=== PATIENT | female | born 1990 | race Caucasian/White ===

== ENCOUNTER → 2017-12-14 | Outpatient (CLI) | payer OTHER ==
--- NOTE | 2017-12-14 20:09 | XCELERA REPORT ---
[address] [address] Transthoracic Echocardiogram Report Name: MAXIMINO OCHOA Age: 27 yrs Gender: Female : 1990 Patient Status: Outpatient Patient Location: Study Date: 12/14/2017 02:31 PM Height: 63 in Weight: 173 lb BSA: 1.8 m2 Procedure: A complete two-dimensional transthoracic echocardiogram was performed (2D, M-mode, spectral and color flow Doppler). The study was technically good with many images being of high quality. Reason For Study: MURMUR Ordering Physician: RUDY ALVAREZ Performed By: Callie Yu Interpretation Summary The left ventricular ejection fraction is normal. The left ventricle is grossly normal size. Doppler measurements suggest normal left ventricular diastolic function There is normal left ventricular wall thickness. No regional wall motion abnormalities noted. The right ventricular systolic function is normal. The left atrial size is normal. The right atrium is normal in size There is a trace amount of mitral regurgitation There is no mitral valve stenosis. No aortic regurgitation is present. There is no aortic valve stenosis There is a trace to mild amount of tricuspid regurgitation Right ventricular systolic pressure is at the upper limits of normal The aortic root is not well visualized but is probably normal size. The inferior vena cava was not well visualized There is no pericardial effusion. MMode/2D Measurements & Calculations RVDd: 2.7 cm LVIDd: 4.2 cm FS: 34.2 % Ao root diam: 2.3 cm IVSd: 0.89 cm LVIDs: 2.8 cm EDV(Teich): 80.5 ml LVPWd: 0.94 cm ESV(Teich): 29.3 ml Ao root area: 4.1 cm2 EF(Teich): 63.6 % LA dimension: 3.2 cm Doppler Measurements & Calculations MV E max eileen: MV P1/2t max eileen: Ao V2 max: LV V1 max P.4 cm/sec 81.9 cm/sec 173.7 cm/sec 7.1 mmHg MV A max eileen: MV P1/2t: 56.7 msec Ao max PG: LV V1 max: 57.3 cm/sec 12.1 mmHg 132.8 cm/sec MV E/A: 1.4 MVA(P1/2t): 3.9 cm2 MV dec slope: 423.1 cm/sec2 MV dec time: 0.20 sec PA V2 max: PI end-d eileen: TR max eileen: 106.6 cm/sec 96.0 cm/sec 245.7 cm/sec PA max PG: TR max P.5 mmHg 24.1 mmHg Left Ventricle The left ventricle is grossly normal size. There is normal left ventricular wall thickness. The left ventricular ejection fraction is normal. Doppler measurements suggest normal left ventricular diastolic function. No regional wall motion abnormalities noted. Right Ventricle The right ventricle is grossly normal size. There is normal right ventricular wall thickness. The right ventricular systolic function is normal. Atria The right atrium is normal in size. The left atrial size is normal. Interarterial septum not well visualized and not well dopplered. Cannot comment on ASD/PFO presence. Mitral Valve The mitral valve is grossly normal. There is no mitral valve stenosis. There is a trace amount of mitral regurgitation. Aortic Valve The aortic valve is grossly normal. There is no aortic valve stenosis. No aortic regurgitation is present. Tricuspid Valve The tricuspid valve is not well visualized, but is grossly normal. There is no tricuspid stenosis. There is a trace to mild amount of tricuspid regurgitation. Right ventricular systolic pressure is at the upper limits of normal. Pulmonic Valve The pulmonic valve is not well visualized. Great Vessels The aortic root is not well visualized but is probably normal size. The inferior vena cava was not well visualized. Effusions There is no pericardial effusion. : RUDY ALVAREZ > Dottie Kennedy
== END ==
LOC: SP 14:01
PROVIDERS: ATTEND Physician Assistant
DX: R01.1 Cardiac murmur, unspecified (principal)
CPT/HCPCS: 93306